=== PATIENT | male | born 1995 | race Caucasian/White ===

== ENCOUNTER → 2023-06-30 | Outpatient (CLI) | payer MEDICAID, SELFPAY ==
--- NOTE | 2023-06-30 | LES_PTH ---
PATIENT: Luke CRANE LOC: [facility] U#:[id number] AGE/SX: 27/M ROOM: RE06/30/[address]: Dr. Juan Joe MD : 1995 BED: DIS: 06/30/2023 SPEC #: [id number] RECD: 07/01/23 07:41 STATUS: COLLEEN REOmar #: [id number] GISEL: 06/30/23 00:[address]: Juan Joe DEPT: SURGICAL PATHOLOGY RECD BY: Heather Rogers ENTERED: 07/01/23 07:42 SP TYPE: Lesion OTHR DR: No Primary Care Phys Tissues: Skin of neck, NOS Procedures: Surgery Specimen Level IV HEADER OPERATION: Excision lesions cluster left neck PRE-OP DIAGNOSIS: Lesions cluster cause irritation and bleeding TISSUE SUBMITTED: Lesions cluster left neck MICROSCOPIC DIAGNOSIS Left neck lesions, biopsy: Fragments of fibroepithelial polyps. Intradermal nevus. Mild chronic inflammation. AM:kasi 07/02/2023 MICROSCOPIC DESCRIPTION Slides are reviewed. GROSS DESCRIPTION Received in fixative is one container labeled with the patient's name and designated left neck cluster. The specimen consists of a polypoid piece of kaufman-white skin measuring 1.0 x 1.0 x 0.4 cm. The base of the largest piece is inked black and is bisected. The entire specimen is submitted in one cassette. / SJ:kasi 07/01/2023 TC:5 [facility]: [id number]
== END | disposition home or self-care (01) ==
LOC: LABSPEC 15:08
PROVIDERS: Referring Provider Surgery; Visit Provider Surgery
DX: D23.4 Other benign neoplasm of skin of scalp and neck (principal); L08.9 Local infection of the skin and subcutaneous tissue, unspecified
CPT/HCPCS: 88305